=== PATIENT | female | born 2000 | race Caucasian/White ===

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

== ENCOUNTER → 2024-06-16 | Outpatient (REF) | payer BC | LOC: M LAB REF 17:10 | PROVIDERS: ATTEND Nurse Practitioner Adult Health | DX: G60.9 Hereditary and idiopathic neuropathy, unspecified (principal) ==